=== PATIENT | male | born 1960 | race Caucasian/White ===

== ENCOUNTER 2020-11-27 00:37 | Day surgery (SDC) | payer BC, SELFPAY ==
[2020-11-14 13:07] VITALS: BMI 36.3
[2020-11-27 06:19] VITALS: BP 116/83; PULSE 63; RESP 18; TEMP 36.1; O2SAT 100; BMI 36.8
[2020-11-27] MEDS: LACTATED RINGERS 1,000 ML 150 ML IV CONT (06:32)
--- NOTE | 2020-11-27 07:00 | PM.HPGS ---
History of Present Illness History of Present Illness Consent: Risks, benefits, and alternatives have been discussed and questions answered. Patient agrees to proceed with procedure. Chief complaint: neoplasm screening Narrative: Elliot Cruz is a 60 year old male Hard for colon cancer screening. His last colonoscopy was 11 years ago Review of Systems Review of Systems: All systems reviewed & are unremarkable except as noted in HPI and below PMFSH Past Medical History Medical History Arthritis Asthma Hypertension Family History Family History Father Family history of heart disease in male family member before age 55, Onset Age: 72 Mother Hypertension Social History Social History Smoking status: Never smoker Alcohol intake: current Drinks per week: 20 Substance use type: does not use Living arrangements: with family Spiritual care concerns: No Meds Home Medications and Allergies Home Medications Medication Instructions Recorded Confirmed Type budesonide-formoterol HFA 160 2 puff INHALATION .COMPLEX #30.6 gm 02/23/20 11/14/20 Rx mcg-4.5 mcg/actuation aerosol inhaler olmesartan 40 1 tablet PO DAILY #90 tablet 02/23/20 11/14/20 Rx mg-hydrochlorothiazide 12.5 mg tablet Allergies Allergy/AdvReac Type Severity Reaction Status Date / Time No Known Allergies Allergy Verified 11/27/20 06:15 Vital Signs Vital Signs - 24 hr 11/27/20 06:19 Temperature 36.1 C L Pulse Rate 63 Respiratory Rate 18 Blood Pressure 116/83 Pulse Oximetry 100 Exam Resp: Auscultation: clear to auscultation bilaterally Cardio: Rate: regular rate Rhythm: regular rhythm GI: GI Palp: Yes Soft to palpation and No Tenderness to palpation present (GI) Assessment and Plan Assessment and plan (1) Screening for colorectal cancer: Code(s): Z12.11 - Encounter for screening for malignant neoplasm of colon; Z12.12 - Encounter for screening for malignant neoplasm of rectum Status: Acute Assessment and Plan: Colonoscopy with possible biopsy or polypectomy or cautery or injection of substances.
--- NOTE | 2020-11-27 07:13 | WPDANESEPPF ---
Anes - Initial Pre Proc Eval Procedure: Operation Date: 11/27/20 07:30 Proposed Procedures p Screening Colonoscopy - Juan Reece MD Date/Time: 11/27/20 07:13 Surgeon: Juan Reece MD Pre Op Diagnosis: neoplasm screening Patient Data Age: 60 Gender: M Height: 6 ft 1 in Weight: 126.6 kg Last Vital Signs Temp 97 F L 11/27/20 06:19 Pulse 63 11/27/20 06:19 Resp 18 11/27/20 06:19 BP 116/83 11/27/20 06:19 Pulse Ox 100 11/27/20 06:19 Allergies Allergy/AdvReac Type Severity Reaction Status Date / Time No Known Allergies Allergy Verified 11/27/20 06:15 Home Medications Medication Instructions Recorded Confirmed Type budesonide-formoterol HFA 160 2 puff INHALATION .COMPLEX #30.6 gm 02/23/20 11/14/20 Rx mcg-4.5 mcg/actuation aerosol inhaler olmesartan 40 1 tablet PO DAILY #90 tablet 02/23/20 11/14/20 Rx mg-hydrochlorothiazide 12.5 mg tablet Patient hx anesthesia problems: none Family hx anesthesia problems: none PMFSH Past Medical History Medical History Arthritis Asthma Hypertension Family History Family History Father Family history of heart disease in male family member before age 55, Onset Age: 72 Mother Hypertension Social History Social History Smoking status: Never smoker Alcohol intake: current Drinks per week: 20 Substance use type: does not use Living arrangements: with family Spiritual care concerns: No Anes - Eval Final PreProcedure Day of Procedure 11/27/20 07:13 Patient weight: obese Heart: regular rate and rhythm Lungs: clear to auscultation Airway: Mallampati scale class III Neurological: alert and oriented Last oral intake: >/= 8 hours ASA classification: III Emergent: no Anesthetic plan: proceed Anesthesia type and monitoring: general GIVS and standard monitoring Informed Consent: The patient's anesthetic plan and its attendant risks and benefits were discussed with the patient/family/POA. Questions were solicited and answers provided to the satisfaction of the patient/family/POA.
[2020-11-27] MEDS: SIMETHICONE ORAL SUSPENSION 20 MG/0.3 ML 30 ML BOTTLE 0.6 ML IRRIGATION (07:35)
[2020-11-27 07:41] VITALS: BP 103/66; PULSE 74; RESP 18; O2SAT 98
[2020-11-27 07:51] VITALS: BP 105/70; PULSE 71; RESP 18; O2SAT 97
[2020-11-27 08:00] VITALS: BP 119/77; PULSE 64; RESP 18; O2SAT 98
== END 2020-11-27 08:09 | disposition home or self-care (01) ==
PROVIDERS: PCP Physician Assistant; Visit Provider Internal Medicine Gastroenterology
PROC: 0DJD8ZZ Inspection of Lower Intestinal Tract, Via Natural or Artificial Opening Endoscopic (ICD-10-PCS; CPT 45378; principal; 2020-11-27 07:30)
DX: Z12.11 Encounter for screening for malignant neoplasm of colon (principal); K57.30 Diverticulosis of large intestine without perforation or abscess without bleeding; M19.90 Unspecified osteoarthritis, unspecified site; J45.909 Unspecified asthma, uncomplicated; I10 Essential (primary) hypertension; E66.9 Obesity, unspecified; Z68.36 Body mass index [BMI] 36.0-36.9, adult
CPT/HCPCS: 45378; J2704; J7120

== ENCOUNTER → 2022-03-28 12:40 | Outpatient (CLI) | payer BC, SELFPAY ==
--- NOTE | ~2022-03-28 | CT_ITS ---
EXAMINATION: CT sinus wo con DATE: 03/28/2022 12:54 INDICATION: Sinonasal tumor TECHNIQUE: Computed tomography (CT) of the paranasal sinuses was performed without contrast. Iterativ e reconstruction technique was employed. Exam dose: 283.55 mGy-cm total exam DLP. COMPARISON: None FINDINGS: There is leftward deviation of the anterior portion of the nasal septum There is moderate soft tissue swelling of the nasal turbinates, right greater than left. There is partial soft tissue opacification of the right middle meatus The 2.4 cm wide 3.1 cm vertical dimension polypoid mass occupying the right maxillary sinus. There is minimal mucoperiosteal thickening of the left maxillary sinus. There is soft tissue thickening at the right maxillary ostium and nearly complete opacification of th e right infundibulum. There is soft tissue thickening at the left maxillary ostium and partial opacification of the left in fundibulum. There is patchy partial soft tissue opacification of the ethmoid air cells bilaterally. There is mild mucosal periosteal thickening along the roof and anterior wall of the right sphenoid si nus. The sphenoid and frontal sinuses are otherwise unremarkable. Partial opacification of a left mastoid air cell. The mastoid air cells otherwise are normally develo ped and aerated. IMPRESSION: Leftward deviation of nasal septum Nearly completely opacified right ostiomeatal unit and mild opacification of the left maxillary ostiu m and infundibulum 2.4 x 3.1 cm polypoid mass of right maxillary sinus Minimal mucoperiosteal thickening left maxillary sinus and patchy soft tissue thickening of the ethmo id air cells Mild mucoperiosteal thickening of the anterior wall and roof of right sphenoid sinus Minimal focal left mastoid air cell opacification Reviewed, dictated and finalized at [facility]. Reviewed, dictated and finalized at [facility]. IMPRESSION: Leftward deviation of nasal septum Nearly completely opacified right ostiomeatal unit and mild opacification of th e left maxillary ostium and infundibulum 2.4 x 3.1 cm polypoid mass of right maxillary sinus Minimal mucoperiosteal thickening left maxillary sinus and patchy soft tissue t hickening of the ethmoid air cells Mild mucoperiosteal thickening of the anterior wall and roof of right sphenoid sinus Minimal focal left mastoid air cell opacification
== END ==
PROVIDERS: PCP Physician Assistant; Visit Provider Otolaryngology
DX: D49.89 Neoplasm of unspecified behavior of other specified sites (principal); J34.2 Deviated nasal septum; J33.0 Polyp of nasal cavity
CPT/HCPCS: 70486

== ENCOUNTER 2022-04-17 12:19 | Outpatient (CLI) | payer BC, SELFPAY ==
--- NOTE | 2022-04-17 12:32 | ECG_ITS ---
Measurements Intervals [place] Rate: 72 P: VT: 0 QRS: 46 QRSD: 86 T: 29 QT: 387 QTc: 424 Interpretive Statements NORMAL SINUS RHYTHM RHYTHM SEPTAL MYOCARDIAL INFARCTION [40+ ms Q WAVE IN V1/V2], PROBABLY OLD ABNORMAL ECG Electronically Signed On 04-17-2022 13:43:19 CDT by Lee Weber M.D.
[2022-04-17 13:16] LABS: Anion Gap 9 mmol/L (8-16); Blood Urea Nitrogen 15 mg/dL (9-20); Calcium 8.5 mg/dL (8.4-10.2); Carbon Dioxide 29 mmol/L (22-30); Chloride 100 mmol/L (98-107); Estimated Glomerular Filt Rate > 60; Glucose 107 mg/dL (65-110); Potassium 4.1 mmol/L (3.4-5.0); Sodium 138 mmol/L (137-145)
== END 2022-04-17 12:20 | disposition home or self-care (01) ==
LOC: ANHSURGERY 12:25
PROVIDERS: Anesthesiology; PCP Physician Assistant; Visit Provider Otolaryngology
DX: Z01.818 Encounter for other preprocedural examination (principal); I10 Essential (primary) hypertension; Z51.81 Encounter for therapeutic drug level monitoring; Z79.899 Other long term (current) drug therapy; I25.2 Old myocardial infarction
CPT/HCPCS: 36415; 80048; 93005

== ENCOUNTER 2022-04-19 01:01 | Day surgery (SDC) | payer BC, SELFPAY ==
[2022-04-16 14:50] VITALS: BMI 32.0
--- NOTE | 2022-04-16 14:56 | PC.NURSE ---
Report to the Outpatient Waiting Room, entrance under the green pavilion located off [facility], at time _0830_ on date _[id number]_. OR Time: 1030_. - You and your visitor will be asked to self-screen and do not enter if you have any COVID symptoms. - Only one visitor and NO children visitors are allowed at this time. - The patient visitor is requested to leave or wait in car when not with patient due to restrictions. - A mask is required within the hospital. Patients may have clear liquids (water, carbonated beverages, clear teas, apple juice) until 3 hours prior to surgery with a maximum of 20 ounces. - No food from midnight until time of surgery Take the following medications with a SIP of water the morning of surgery: ____Symbicort if needed. Medications to discontinue per physician None Date to take last dose Please no make-up, nail comoran, hairspray, perfume, deodorant, or body powder the day of surgery. No jewelry (including any body piercings) or valuables the day of surgery, leave them at home. Please take a shower or bath the night before, or the morning of, surgery with an antibacterial soap. Wear comfortable, loose fitting clothing. - Jewelry must be removed prior to entering the operating room. Rings and piercings that are not removed may be cut off. - The hospital will not accept responsibility for valuables. - Please leave all valuables, including medications, at home the day of surgery. If you are going home after surgery, a licensed local delivery driver must drive you home. - NO public transportation without another adult. - We recommend that an adult stay with you for 24 hours following discharge. - We also recommend that you do not drive, make important decision, drink alcoholic beverages, or take any drugs that were not prescribed by your health care provider for at least 24 hours after your discharge time. Follow any additional instructions given to you from your surgeon. If you or anyone in your household have experienced Covid symptoms in the past week, please notify your surgeon or the nurse liaison at the phone number below for possible testing. Telephone instructions given to _Patient___and asked if any additional questions and then verbalized understanding. Patient advised to call surgeon office or pre surgery nurse liaison [phone] if any additional questions.
--- NOTE | 2022-04-17 16:09 | PM.IMHP ---
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 deviation Narrative: planned surgical procedure Review of Systems Review of Systems: All systems reviewed & are unremarkable except as noted in HPI and below PMFSH Past Medical History Medical History Arthritis Asthma Hypertension Family History Family History Father Family history of heart disease in male family member before age 55, Onset Age: 72 Mother Hypertension Social History Social History Smoking status: Never smoker Alcohol intake: current Drinks per week: 12 Substance use type: does not use Spiritual care concerns: No Meds Home Medications and Allergies Home Medications Medication Instructions Recorded Confirmed Type budesonide-formoterol HFA 160 2 puff inhalation .COMPLEX #30.6 06/18/21 04/16/22 Rx mcg-4.5 mcg/actuation aerosol grams inhaler (Symbicort) olmesartan 40 1 tablet PO DAILY #90 tabs 09/21/21 04/16/22 Rx mg-hydrochlorothiazide 12.5 mg tablet fluticasone propionate 50 2 spray intranasal DAILY PRN 04/16/22 04/16/22 History mcg/actuation nasal Allergy Symptoms spray,suspension Allergies Allergy/AdvReac Type Severity Reaction Status Date / Time No Known Allergies Allergy Verified 04/16/22 14:49 Exam Narrative: normal ENT exam see nasal exam last office Assessment and Plan Assessment and plan (1) Nasal septal deviation: Code(s): J34.2 - Deviated nasal septum Status: Acute Assessment and Plan: right-sided image guided resection sinonasal tumor anterior ethmoidectomy maxillary antrostomy with tissue removal all image guided endoscopic left-sided total ethmoidectomy maxillary antrostomy only if possible patient has refused septoplasty risks discussed including bleeding infection blindness change in vision CSF leak brain damage need for further procedures postoperative bleeding patient voiced understanding and agreed. 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
--- NOTE | 2022-04-18 13:55 | P.PNAN_ITS ---
Anes - Initial Pre Proc Eval Procedure: Operation Date: 04/19/22 10:30 Proposed Procedures p Image Guided Bilateral Maxillary Antrostomy with Tissue Removal, Total Ethmoidectomies, Resection Right Sinonasal Tumor - Ariel Jim MD Date/Time: 04/18/22 13:55 Surgeon: Ariel Jim MD Pre Op Diagnosis: chronic sinusitis Patient Data Age: 61 Gender: M Height: 1.85 m Weight: 110 kg Allergies Allergy/AdvReac Type Severity Reaction Status Date / Time No Known Allergies Allergy Verified 04/19/22 09:24 Home Medications Medication Instructions Recorded Confirmed Type budesonide-formoterol HFA 160 2 puff inhalation .COMPLEX #30.6 06/18/21 04/16/22 Rx mcg-4.5 mcg/actuation aerosol grams inhaler (Symbicort) olmesartan 40 1 tablet PO DAILY #90 tabs 09/21/21 04/16/22 Rx mg-hydrochlorothiazide 12.5 mg tablet fluticasone propionate 50 2 spray intranasal DAILY PRN 04/16/22 04/16/22 History mcg/actuation nasal Allergy Symptoms spray,suspension Patient hx anesthesia problems: none Family hx anesthesia problems: none Results Review: All pre-operative results and documents have been reviewed as part of the pre- operative evaluation. [facility] Past Medical History Medical History Arthritis Asthma Hypertension Family History Family History Father Family history of heart disease in male family member before age 55, Onset Age: 72 Mother Hypertension Social History Social History (Updated 04/19/22 @ 09:29 by Julien Verduzco DO) Smoking status: Never smoker Alcohol intake: current Alcohol use details: 3-4 drinks/day Substance use type: does not use Living arrangements: with family Spiritual care concerns: No Anes - Eval Final PreProcedure Day of Procedure 04/18/22 13:55 Patient weight: obese Heart: regular rate and rhythm Lungs: clear to auscultation Airway: Mallampati scale class II Neurological: alert and oriented Last oral intake: >/= 8 hours ASA classification: III Emergent: no Anesthetic plan: proceed Anesthesia type and monitoring: general ETT and standard monitoring Results Review: All pre-operative results and documents have been reviewed as part of the pre- operative evaluation. Informed Consent: The patient's anesthetic plan and its attendant risks and benefits were discussed with the patient/family/POA. Questions were solicited and answers provided to the satisfaction of the patient/family/POA.
[2022-04-19] VITALS (8 sets, daily range): BP systolic 131–160; BP diastolic 74–100; PULSE 57–73; RESP 10–16; TEMP 36.1–36.6; O2SAT 92–100
--- NOTE | 2022-04-19 07:10 | WPDHPUPDATE1 ---
History and Physical Update Update Date/Time: 04/19/22 07:10 History and Physical has been reviewed, including an updated exam of the patient. There are NO changes in the patient's condition. Risks, benefits, and alternatives have been discussed and questions answered. Patient agrees to proceed with procedure.
[2022-04-19] MEDS: ACETAMINOPHEN 500 MG TABLET 1000 MG PO (09:16)
[2022-04-19] MEDS: LACTATED RINGERS 1,000 ML 30 ML IV CONT ×2 (09:22→12:46)
[2022-04-19] MEDS: ceFAZolin 2 GM/D5W 50 ML 2 GM/50 ML BAG IVPB (10:31)
[2022-04-19] MEDS: OXYMETAZOLINE HCL 0.05% NAS 15 ML BTL (*BKC) 1 SPRAY NASAL (10:58)
[2022-04-19] MEDS: fentaNYL CITRATE INJ (*CRX) 100 MCG/2 ML VIAL 25 MCG IV PUSH ×4 (12:20→12:43)
--- NOTE | 2022-04-19 12:49 | W.PM.PROC2 ---
Procedure Note - Detailed Date of Procedure 04/19/22 Pre-op Diagnosis chronic sinusitis, nasal polyps, sinonasal tumor Post-op Diagnosis Same Procedure Performed Bilateral polypectomy, right-sided maxillary antrostomy total ethmoidectomy endoscopic image guided Surgeon Ariel Jim MD Anesthesia General Indications See above Findings The bilateral polyps very large right-sided 1 this was sent for pathologic analysis large maxillary sinus cyst on right opened Description of Procedure Patient identified consent verified. Patient brought operating. Time-out performed. General anesthesia induced endotracheal tube secured taped left lower lip. Patient prepped draped bed positioned 2nd time-out performed. Image guidance initiated and confirmed. Afrin-soaked pledgets placed for 5 minutes then removed. 0 degree endoscope as well as image guidance utilized left-sided septal deviation large polyp in the middle meatus this was removed Afrin-soaked pledget placed against this for 5 minutes no further bleeding small amount of no pack placed against this. Right-sided large polyps sphenoethmoidal recess middle meatus these were removed total ethmoidectomy performed with microdebrider [place] and image guidance. Afrin-soaked pledget utilized to pack against this intermittently no excessive bleeding noted. Maxillary antrostomy the right performed with image guidance double ball tip probe microdebrider straight through cut as well as angled microdebrider. Large cyst was completely removed. It was ensured to connect to the natural os as well. Blood loss 20cc. No complications. Care the patient given Anesthesiology. No pack placed on the right as well. Patient taken to PACU. Estimated Blood Loss -20.0 Drains No Packing Yes (Nova sadie) Pathology Yes Complications No immediate complications Condition Stable Disposition PACU
== END 2022-04-19 13:50 | disposition home or self-care (01) ==
PROVIDERS: PCP Physician Assistant; Visit Provider Otolaryngology
PROC: (CPT 61782; principal; 2022-04-19 10:30)
DX: J34.2 Deviated nasal septum (principal); J33.0 Polyp of nasal cavity; J32.9 Chronic sinusitis, unspecified; J34.1 Cyst and mucocele of nose and nasal sinus; D49.89 Neoplasm of unspecified behavior of other specified sites; J33.9 Nasal polyp, unspecified; M19.90 Unspecified osteoarthritis, unspecified site; I10 Essential (primary) hypertension; J45.909 Unspecified asthma, uncomplicated; E66.9 Obesity, unspecified; Z68.32 Body mass index [BMI] 32.0-32.9, adult
CPT/HCPCS: 61782; 31255; 31256; 88304; A9270; J0690; J1100; J1170; J2250; J2405; J2704; J3010; J7120

== ENCOUNTER → 2023-10-20 11:20 | Outpatient (CLI) | payer BC, SELFPAY ==
--- NOTE | ~2023-10-20 | XR_ITS ---
EXAM: XR lumbar spine 2-3V DATE: 10/20/2023 11:33 HISTORY: no injury low back pain . COMPARISON: 05/22/2015. FINDINGS: 5 nonrib-bearing lumbar-type vertebral bodies. Sacralization of L5, with a rudimentary dis c at L5-S1. Mild lumbar scoliosis. Stable mild anterior wedge deformity at L3 and mild height loss at L4. Loss of the normal lordosis. 2 mm anterolisthesis at T12-L1. Multilevel disc space narrowing and marginal osteophytosis, severe at L1-2 and L4-5. Severe lower lumbar facet hypertrophy and sclerosis . Multilevel large bridging lateral osteophytes. Multiple pelvic phleboliths. Partially visualized ri ght hip hardware IMPRESSION: Sacralization of L5. Multilevel severe degenerative disc disease and facet arthropathy. T race, grade 1 anterolisthesis at T12-L1. Reviewed, dictated and finalized at [facility]. ATION CLERK IMPRESSION: Sacralization of L5. Multilevel severe degenerative disc disease an d facet arthropathy. Trace, grade 1 anterolisthesis at T12-L1.
== END ==
PROVIDERS: PCP Physician Assistant; Visit Provider Chiropractor
DX: M43.27 Fusion of spine, lumbosacral region (principal); M51.36 Other intervertebral disc degeneration, lumbar region; M51.37 Other intervertebral disc degeneration, lumbosacral region; M43.05 Spondylolysis, thoracolumbar region
CPT/HCPCS: 72100

== ENCOUNTER 2024-12-30 14:09 | Outpatient (CLI) | payer MEDICARE, SELFPAY ==
--- NOTE | ~2024-12-30 | XR_ITS ---
3 VIEWS LUMBAR SPINE Ordering provider: Charles Mathew DO History: . M54.9 - Dorsalgia, unspecified . Comparison: October 20 2023 FINDINGS: VERTEBRAL BODIES:Sacralization of L5. No visible fracture or subluxation. Degenerative changes of th e spine. DISK SPACES: Narrowing of the disc L1-L2, L2-L3, L3-L4 and L5-S1. Multilevel Facet disease. SOFT TISSUES: Normal. Right hip arthroplasty. IMPRESSION: No acute osseous abnormality lumbar spine. Multilevel degenerative disc disease. Reviewed, dictated and finalized at location [facility].
--- NOTE | ~2024-12-30 | XR_ITS ---
XR hip RT min 2V 12/30/2024 14:28 Indication: Right hip pain Procedure: 2 views right hip Comparison: 02/18/2018 Findings: There is a right total hip arthroplasty. Prosthesis well seated. There is heterotopic ossif ication lateral to the hip joint. No fracture or traumatic malalignment. Impression: 1: No acute bone or joint abnormality. Reviewed, dictated and finalized at location [facility]. Impression: 1: No acute bone or joint abnormality.
--- OUTSIDE RECORDS SUMMARY | 2024-12-30 14:58 | XMS_ITS | Clinical Summary ---
Author Organization 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
--- OUTSIDE RECORDS SUMMARY | 2024-12-30 14:59 | XMS_ITS | Referral Summary ---
Author Organization [facility] [address] Address [address] [place] [address] Care Team Providers Care Armament Installer Name Role Phone Jerson Betts MD Primary Care Provide r Allergies No known active allergies Social History Tobacco Use Types Packs/Day Years Used Date Smoking Tobacco: Never Assessed Personal Safety Answer Date Recorded Getting School Help Needed Not on file 11/14 Sex and Gender Information Value Date Recorded Sex Assigned at Not on file Legal Sex Male 11:51 AM [employer] Gender Identity Not on file Sexual Orientation Not on file Plan of Treatment Not on file Insurance CHOICE PLUS Care Teams Armament Installer Relationship Specialty Start Date End Date Jerson Betts MD [address] [place] [place] [address] PCP - General Emergency Medicine 01/30/18
== END 2024-12-30 14:10 | disposition home or self-care (01) ==
PROVIDERS: PCP Internal Medicine; Visit Provider Internal Medicine
DX: M51.369 Other intervertebral disc degeneration, lumbar region without mention of lumbar back pain or lower extremity pain (principal); M51.379 Other intervertebral disc degeneration, lumbosacral region without mention of lumbar back pain or lower extremity pain; M25.551 Pain in right hip
CPT/HCPCS: 72100; 73502

== ENCOUNTER 2025-02-18 09:00 | Outpatient (RCR) | payer MEDICARE, OTHER, SELFPAY ==
--- NOTE | 2025-01-14 11:32 | OPREHPOC ---
Outpatient Therapy Plan of Care This is a Multidisciplinary Plan of Care that may contain components documented by all disciplines (PT, OT, and ST.) PT Problem 1 PT Problem #1 Knowledge Deficit PT Goal 1 Goal / Goal Update 1*independent with HEP 2* demonstrate correct body mechanics with lifting from the floor Target Visit 5 PT Problem 2 PT Problem #2 Pain PT Goal 1 Goal / Goal Update * pt report pain rating of 1/10 at worst with increase activity Target Visit 5 PT Problem 3 PT Problem #3 Impaired Flexibility PT Goal 1 Goal / Goal Update * increase flexibility of hips and trunk, to decrease pull on spine: hamstring length with supine SLR to 60' 1* R 2* L anterior hip/quad length with prone knee flexion to 125' 3* R 4* L Target Visit 5 PT Problem 4 PT Problem #4 Impaired Strength PT Goal 1 Goal / Goal Update *increase strength of trunk to improve stability to spine single leg standing 10 seconds with good stability 1* R 2* L Target Visit 5
--- NOTE | 2025-01-14 11:32 | PTOPEVAL1 ---
Assessment and note entered by Britni Rockwell, PT Evaluation Information Assessment Status Evaluation ICD-10 Condition Codes (PT) Pain in low back M54.50 Onset about year ago Subjective Information got out of bed one AM and woke up with spasms in back; more pain into R leg history of intermittent back pain, R THR- Dr Perez 2018 have not had PT in the past for LBP x ray report: sacralization of L; disc narrowing lumbar activity: retired, active, walks for fitness Reported Pain Level Pain Score Self Report Additional Pain Score Comments pain range in the past week 0-1/10- low back pain is less, was having spasms & R lateral hip pain, now not having increase pain: first wake up in AM decrease pain: rest is not taking any pain meds; sleeping is OK, sometimes feel it when roll over in bed; tend to sleep on his L side Assessment PT Clinical Summary Elliot has the diagnosis of back pain. He reports chronic, intermittent pain in his back. The pain has eased and he is not sure if he needs PT or not, but his made him come. Self assessment rating of 10% limitation in activity level. He is retired and active, has a fitness membership and is trying to go regular exercises. Medical history includes R THR in 2018. With the evaluation: good strength of bilateral LE's with tightness/decreased flexibility over hips and lumbar spine; with the testing, did not illicit any pain increase; poor standing position of his spine with concave to R; poor single leg standing tolerance. Skilled PT services are indicated for modalities PRN, therapeutic exercises to increase trunk strength and hip flexibility with education for HEP, body mechanics and pain management techniques Plan of Care Interventions Electrical Stimulation,Hot Pack/Cold Pack,Manual Therapy,Neuro Re-education,Patient/Caregiver Education,Therapeutic Activities,Therapeutic Exercise,Ultrasound,Other Other Interventions taping PT Services Indicated Yes Treatment Frequency and 1x/wk for 5 visits Duration These treatments will address the objective and functional deficits as defined above. The patient will be advanced safely and appropriately in order for the patient to progress towards his/her prior level of function. Additional exercises will be introduced and as well as a comprehensive home exercise program upon discharge, if needed, ?to ensure carryover of functional gains achieved in the clinic. This treatment plan has been reviewed and agreement upon by the patient.
--- NOTE | 2025-02-18 09:51 | OPREHPOC ---
Outpatient Therapy Plan of Care This is a Multidisciplinary Plan of Care that may contain components documented by all disciplines (PT, OT, and ST.) PT Problem 1 PT Problem #1 Knowledge Deficit PT Goal 1 Goal / Goal Update 1*independent with HEP 2* demonstrate correct body mechanics with lifting from the floor 02-18-25 d/c goals met Target Visit 5 Progress Met PT Problem 2 PT Problem #2 Pain PT Goal 1 Goal / Goal Update * pt report pain rating of 1/10 at worst with increase activity 02-18-25 d/c goal not met, 3/10 at worst Target Visit 5 Progress Not Met PT Problem 3 PT Problem #3 Impaired Flexibility PT Goal 1 Goal / Goal Update * increase flexibility of hips and trunk, to decrease pull on spine: hamstring length with supine SLR to 60' 1* R 2* L anterior hip/quad length with prone knee flexion to 125' 3* R 4* L 25 d/c goals met Target Visit 5 Progress Met PT Problem 4 PT Problem #4 Impaired Strength PT Goal 1 Goal / Goal Update *increase strength of trunk to improve stability to spine single leg standing 10 seconds with good stability 1* R 2* L 02-18-25 d/c goals not met, improved to 4 seconds Target Visit 5 Progress Not Met
--- NOTE | 2025-02-18 09:51 | PTOPDC ---
Assessment and note entered by Britni Rockwell, PT Assessment Status Discharge ICD-10 Condition Codes (PT) Pain in low back M54.50 Onset about year ago Subjective Information back is about the same, have learned some stretching and things to do to help it; Reported Pain Level Pain Score Self Report Additional Pain Score Comments pain range in the past week 0-3/10- low back, mostly on R side; no hip pain for past month, not having any spasms increase pain: first wake up in AM and get up out of bed, sit to standing decrease pain: rest, stretching is not taking any pain meds; sleeping is not disrupted due to back pain; can feel back when roll over, but is OK Assessment PT Clinical Summary Elliot has received 5 PT sessions. Compared to the initial evaluation: pain from 0-1/10 to 0-3/10; self assessment with back index from 10 to 12% limitation in activity level; increase flexibility of bilateral hamstrings and anterior - hip - quad muscles; increase trunk and hip strength; education for HEP, posture/body mechanics and pain management techniques. The goals were partially met. Discharge PT. He is to continue with his HEP and activity/rest balance. Plan of Care PT Services Indicated No
== END 2025-02-18 10:51 | disposition home or self-care (01) ==
LOC: ANHPT 09:00
PROVIDERS: PCP Internal Medicine; Visit Provider Internal Medicine
DX: M54.50 Low back pain, unspecified (principal)
CPT/HCPCS: 97110; 97140; 97161; 97530